=== PATIENT | female | born 1935 | race Caucasian/White ===

== ENCOUNTER 2018-08-01 15:14 | Inpatient (IN) ==
[2018-08-01] MEDS ORDERED: ONDANSETRON 4 MG/2 ML VIAL IV PRN (15:31)
[2018-08-01] MEDS ORDERED: ACETAMINOPHEN 325 MG TABLET PO PRN (15:31)
[2018-08-01] MEDS ORDERED: MAGNESIUM SULF RIDER 4 GM in PREMIX 1 EACH IV PRN (15:31)
[2018-08-01] MEDS ORDERED: ZALEPLON 5 MG CAPSULE PO PRN (15:31)
[2018-08-01] MEDS ORDERED: MAGNESIUM SULF RIDER 2 GM in PREMIX 1 EACH IV PRN (15:31)
[2018-08-01] MEDS ORDERED: DOCUSATE SODIUM 100 MG CAPSULE PO PRN (15:31)
[2018-08-01 19:17] LABS: Basophils # 0.1 10*3/uL (0.0-0.2); Basophils % 0.7 % (0.0-0.8); Eosinophils # 0.3 10*3/uL (0.0-0.87); Eosinophils % 2.2 % (0.00-10.9); Hematocrit 35.3 VOL% (35.7-47.0); Hemoglobin 11.6 GM/DL (12.0-16.0); Immature Granulocytes % 0.5 %; Immature Granulocytes Absolute 0.06 #; Lymphocytes # 3.4 10*3/uL (1.4-4.0); Lymphocytes % 30.1 % (21.3-54.2); Mean Corpuscular HGB Conc 32.9 GM/DL (32-36); Mean Corpuscular Hemoglobin 32 PG (27-34); Mean Corpuscular Volume 98.6 FL (87-102); Mean Platelet Volume 11.2 FL (9.6-12.0); Monocytes # 0.9 10*3/uL (0.11-0.8); Monocytes % 8.2 % (1.7-12.7); Neutrophils # 6.7 10*3/uL (1.4-7.4); Neutrophils % 58.3 % (38.7-73.9); Platelet Count 194 T/CUMM (130-400); Red Blood Count 3.58 MC/CUMM (3.8-5.5); Red Cell Distribution Width 14.1 % (9.3-17.3); White Blood Count 11.4 T/CUMM (4-12)
[2018-08-01 19:40] LABS: Calcium 9.1 MG/DL (8.5-10.1); Osmolality,Calculated 303.8 MOS/KG (273-304); Potassium 3.9 MMOL/L (3.5-5.1)
[2018-08-01 22:43] LABS: Apearance,Urine Slightly Hazy (Clear); Bacteria,Urine Many /HPF (Few); Bilirubin,Urine Negative (Negative); Blood, Urine Negative (Negative); Glucose,Urine (UA) Negative (Negative); Hyaline Casts,Urine 5 /LPF (0-3); Ketones,Urine Negative (Negative); Nitrite,Urine Positive (Negative); Protein,Urine Negative; Squamous Epithelial Cell,Urine Occasional /HPF (0-10); Urine Color Yellow (Yellow); Urine Specific Gravity 1.018 (1.001-1.035); Urine Urobilinogen < 2.0 EU/DL (0.2-1.0); WBC,Urine 11 /HPF (0-6)
[2018-08-02] MEDS ORDERED: ceFAZolin 1,000 MG VIAL IRRIG ONE (06:00)
[2018-08-02] MEDS ORDERED: ceFAZolin 1,000 MG in SYRINGE 1 EACH IV ONE (06:00)
[2018-08-02] MEDS ORDERED: MIDAZOLAM 2 MG/2 ML VIAL ONE (12:24)
[2018-08-02] MEDS ORDERED: LIDOCAINE 1% 20 ML VIAL ONE (12:24)
[2018-08-02] MEDS ORDERED: HEPARIN/NACL 0.9% 2 UNITS/ML 500 ML IV ONE (12:24)
[2018-08-02] MEDS ORDERED: fentaNYL 100 MCG/2 ML VIAL ONE (12:24)
[2018-08-02] MEDS ORDERED: ceFAZolin 1,000 MG VIAL ONE (12:25)
[2018-08-02] MEDS ORDERED: TISSUE ADHESIVE 1 EACH APPLICATOR TOP ONE (12:25)
[2018-08-02] MEDS ORDERED: hydrALAZINE 20 MG/1 ML VIAL ONE (12:48)
[2018-08-02] MEDS ORDERED: GLUCAGON 1 MG VIAL IM PRN ×2 (13:14→14:24)
[2018-08-02] MEDS ORDERED: DEXTROSE 50% 25 GM/50 ML VIAL IV PRN (13:14)
[2018-08-02] MEDS: LOSARTAN 50 MG TABLET PO SCH ×2 (13:49→22:16)
[2018-08-02] MEDS: ALLOPURINOL 100 MG TABLET PO SCH ×2 (13:50→22:16)
[2018-08-02] MEDS: FAMOTIDINE 20 MG TABLET PO SCH ×2 (13:50→22:17)
[2018-08-02] MEDS ORDERED: METOPROLOL TARTRATE 5 MG/5 ML VIAL IV ONE ×2 (14:04→14:13)
[2018-08-02] MEDS ORDERED: DEXTROSE 50% 25 GM/50 ML SYRINGE IV PRN (14:24)
[2018-08-02] MEDS ORDERED: oxyCODONE/ACETAMINOPHEN 5-325 MG TABLET PO PRN (14:24)
[2018-08-02] MEDS ORDERED: cloNIDine 0.1 MG TABLET PO PRN (14:26)
[2018-08-02] MEDS ORDERED: ONDANSETRON 4 MG/2 ML VIAL ONE (14:32)
[2018-08-02] MEDS: hydroCHLOROthiazide 12.5 MG CAPSULE PO SCH (15:03)
[2018-08-02] MEDS: ISOSORBIDE MONONITRATE 30 MG TABLET PO SCH (15:04)
[2018-08-02] MEDS: cefTRIAXone 1,000 MG in SYRINGE 1 EACH IV SCH (15:21)
[2018-08-02] MEDS: METOPROLOL TARTRATE 50 MG TABLET PO SCH ×2 (15:21→22:18)
[2018-08-02] MEDS: INSULIN LISPRO 100 UNIT/ML SUBCUT SCH (17:10)
[2018-08-02] MEDS: INSULIN REGULAR 100 UNIT/ML SUBCUT SCH ×2 (17:10→22:17)
[2018-08-02] MEDS: ATORVASTATIN 20 MG TABLET PO SCH (22:16)
[2018-08-02] MEDS: FERROUS SULFATE ER 140 MG TABLET PO SCH (22:16)
[2018-08-02] MEDS: CLOPIDOGREL 75 MG TABLET PO SCH (22:17)
[2018-08-02] MEDS: INSULIN GLARGINE 100 UNIT/ML SUBCUT SCH (22:17)
[2018-08-02] MEDS: ceFAZolin 1,000 MG in SYRINGE 1 EACH IV SCH (22:20)
[2018-08-03] MEDS: ceFAZolin 1,000 MG in SYRINGE 1 EACH IV SCH (04:35)
[2018-08-03 05:30] LABS: Basophils # 0.1 10*3/uL (0.0-0.2); Basophils % 0.3 % (0.0-0.8); Eosinophils % 0.3 % (0.00-10.9); Hematocrit 32.5 VOL% (35.7-47.0); Hemoglobin 10.3 GM/DL (12.0-16.0); Immature Granulocytes % 0.4 %; Immature Granulocytes Absolute 0.06 #; Lymphocytes # 3.8 10*3/uL (1.4-4.0); Lymphocytes % 25.2 % (21.3-54.2); Mean Corpuscular HGB Conc 31.7 GM/DL (32-36); Mean Corpuscular Hemoglobin 32 PG (27-34); Mean Corpuscular Volume 99.7 FL (87-102); Mean Platelet Volume 11.2 FL (9.6-12.0); Monocytes # 1.3 10*3/uL (0.11-0.8); Monocytes % 8.6 % (1.7-12.7); Neutrophils # 9.8 10*3/uL (1.4-7.4); Neutrophils % 65.2 % (38.7-73.9); Platelet Count 169 T/CUMM (130-400); Red Blood Count 3.26 MC/CUMM (3.8-5.5)
[2018-08-03 05:49] LABS: Calcium 8.9 MG/DL (8.5-10.1); Osmolality,Calculated 297.8 MOS/KG (273-304); Potassium 3.8 MMOL/L (3.5-5.1)
[2018-08-03] MEDS: INSULIN REGULAR 100 UNIT/ML SUBCUT SCH ×4 (07:23→22:17)
[2018-08-03] MEDS: INSULIN LISPRO 100 UNIT/ML SUBCUT SCH ×3 (08:52→16:22)
[2018-08-03] MEDS ORDERED: IBUPROFEN 200 MG TABLET PO PRN (09:11)
[2018-08-03] MEDS: COLCHICINE 0.6 MG CAPSULE PO SCH (10:50)
[2018-08-03] MEDS: ISOSORBIDE MONONITRATE 30 MG TABLET PO SCH (10:50)
[2018-08-03] MEDS: FERROUS SULFATE ER 140 MG TABLET PO SCH ×2 (10:50→21:41)
[2018-08-03] MEDS: FAMOTIDINE 20 MG TABLET PO SCH ×2 (10:50→21:41)
[2018-08-03] MEDS: hydroCHLOROthiazide 12.5 MG CAPSULE PO SCH (10:50)
[2018-08-03] MEDS: METOPROLOL TARTRATE 50 MG TABLET PO SCH ×2 (10:51→21:41)
[2018-08-03] MEDS: ALLOPURINOL 100 MG TABLET PO SCH ×2 (10:51→21:41)
[2018-08-03] MEDS: LOSARTAN 50 MG TABLET PO SCH ×2 (10:51→21:41)
[2018-08-03] MEDS: cefTRIAXone 1,000 MG in SYRINGE 1 EACH IV SCH (16:22)
[2018-08-03] MEDS: ATORVASTATIN 20 MG TABLET PO SCH (21:41)
[2018-08-03] MEDS: CLOPIDOGREL 75 MG TABLET PO SCH (21:41)
[2018-08-03] MEDS: INSULIN GLARGINE 100 UNIT/ML SUBCUT SCH (21:46)
[2018-08-04 04:27] LABS: Basophils % 0.2 % (0.0-0.8); Eosinophils % 0.1 % (0.00-10.9); Hematocrit 26.4 VOL% (35.7-47.0); Hemoglobin 8.3 GM/DL (12.0-16.0); Immature Granulocytes % 0.5 %; Immature Granulocytes Absolute 0.06 #; Lymphocytes # 2.5 10*3/uL (1.4-4.0); Lymphocytes % 19.8 % (21.3-54.2); Mean Corpuscular HGB Conc 31.4 GM/DL (32-36); Mean Corpuscular Hemoglobin 32 PG (27-34); Mean Corpuscular Volume 100.4 FL (87-102); Mean Platelet Volume 11.8 FL (9.6-12.0); Monocytes # 1.4 10*3/uL (0.11-0.8); Monocytes % 11.3 % (1.7-12.7); Neutrophils # 8.4 10*3/uL (1.4-7.4); Neutrophils % 68.1 % (38.7-73.9); Platelet Count 145 T/CUMM (130-400); Red Blood Count 2.63 MC/CUMM (3.8-5.5); Red Cell Distribution Width 14.1 % (9.3-17.3); White Blood Count 12.4 T/CUMM (4-12)
[2018-08-04 05:09] LABS: Calcium 8.5 MG/DL (8.5-10.1); Potassium 3.5 MMOL/L (3.5-5.1)
[2018-08-04] MEDS: LOSARTAN 50 MG TABLET PO SCH ×2 (09:13→22:24)
[2018-08-04] MEDS: FERROUS SULFATE ER 140 MG TABLET PO SCH ×2 (09:13→22:24)
[2018-08-04] MEDS: hydroCHLOROthiazide 12.5 MG CAPSULE PO SCH (09:13)
[2018-08-04] MEDS: INSULIN LISPRO 100 UNIT/ML SUBCUT SCH ×3 (09:14→16:00)
[2018-08-04] MEDS: INSULIN REGULAR 100 UNIT/ML SUBCUT SCH ×4 (09:14→22:25)
[2018-08-04] MEDS: ISOSORBIDE MONONITRATE 30 MG TABLET PO SCH (09:14)
[2018-08-04] MEDS: FAMOTIDINE 20 MG TABLET PO SCH ×2 (09:14→22:24)
[2018-08-04] MEDS: ALLOPURINOL 100 MG TABLET PO SCH ×2 (09:14→22:24)
[2018-08-04] MEDS: METOPROLOL TARTRATE 50 MG TABLET PO SCH ×2 (09:14→22:24)
[2018-08-04] MEDS: COLCHICINE 0.6 MG CAPSULE PO SCH (10:43)
[2018-08-04] MEDS: cefTRIAXone 1,000 MG in SYRINGE 1 EACH IV SCH (16:00)
[2018-08-04] MEDS: ATORVASTATIN 20 MG TABLET PO SCH (22:24)
[2018-08-04] MEDS: CLOPIDOGREL 75 MG TABLET PO SCH (22:24)
[2018-08-04] MEDS: INSULIN GLARGINE 100 UNIT/ML SUBCUT SCH (22:25)
[2018-08-05 04:26] LABS: Basophils # 0.1 10*3/uL (0.0-0.2); Basophils % 0.5 % (0.0-0.8); Eosinophils # 0.4 10*3/uL (0.0-0.87); Eosinophils % 3.6 % (0.00-10.9); Hematocrit 26.8 VOL% (35.7-47.0); Hemoglobin 8.6 GM/DL (12.0-16.0); Immature Granulocytes % 0.5 %; Immature Granulocytes Absolute 0.05 #; Lymphocytes # 3.2 10*3/uL (1.4-4.0); Lymphocytes % 30.7 % (21.3-54.2); Mean Corpuscular HGB Conc 32.1 GM/DL (32-36); Mean Corpuscular Hemoglobin 32 PG (27-34); Mean Corpuscular Volume 98.9 FL (87-102); Mean Platelet Volume 11.2 FL (9.6-12.0); Monocytes % 9.4 % (1.7-12.7); Neutrophils # 5.8 10*3/uL (1.4-7.4); Neutrophils % 55.3 % (38.7-73.9); Platelet Count 152 T/CUMM (130-400); Red Blood Count 2.71 MC/CUMM (3.8-5.5); Red Cell Distribution Width 13.8 % (9.3-17.3); White Blood Count 10.5 T/CUMM (4-12)
[2018-08-05 04:44] LABS: Calcium 8.4 MG/DL (8.5-10.1); Osmolality,Calculated 300.1 MOS/KG (273-304); Potassium 3.8 MMOL/L (3.5-5.1)
[2018-08-05] MEDS: LOSARTAN 50 MG TABLET PO SCH (09:52)
[2018-08-05] MEDS: COLCHICINE 0.6 MG CAPSULE PO SCH (09:52)
[2018-08-05] MEDS: FAMOTIDINE 20 MG TABLET PO SCH (09:52)
[2018-08-05] MEDS: METOPROLOL TARTRATE 50 MG TABLET PO SCH (09:52)
[2018-08-05] MEDS: FERROUS SULFATE ER 140 MG TABLET PO SCH (09:52)
[2018-08-05] MEDS: ISOSORBIDE MONONITRATE 30 MG TABLET PO SCH (09:52)
[2018-08-05] MEDS: ALLOPURINOL 100 MG TABLET PO SCH (09:52)
[2018-08-05] MEDS: hydroCHLOROthiazide 12.5 MG CAPSULE PO SCH (09:52)
[2018-08-05] MEDS: INSULIN LISPRO 100 UNIT/ML SUBCUT SCH ×3 (09:55→16:15)
[2018-08-05] MEDS: INSULIN REGULAR 100 UNIT/ML SUBCUT SCH ×3 (09:58→16:30)
[2018-08-05 12:11] VITALS: BP 157/70
[2018-08-06] MEDS ORDERED: OXYTROL PATCH TRANSDERM SCH (08:00)
== END 2018-08-05 16:27 | DRG 243 ==
LOC: N.TELES 18:12 → INTOOBSV 18:12
PROVIDERS: ADMIT Internal Medicine Clinical Cardiac Electrophysiology; ATTEND Internal Medicine Clinical Cardiac Electrophysiology

== ENCOUNTER 2020-11-03 14:42 | Inpatient (IN) ==
[2020-11-03 15:26] LABS: Basophils # 0.1 10*3/uL (0.0-0.2); Basophils % 0.5 % (0.0-0.8); Eosinophils # 0.1 10*3/uL (0.0-0.87); Eosinophils % 0.3 % (0.00-10.9); Hemoglobin 12.1 GM/DL (12.0-16.0); Immature Granulocytes % 0.6 %; Immature Granulocytes Absolute 0.11 #; Lymphocytes # 2.3 10*3/uL (1.4-4.0); Lymphocytes % 12.5 % (21.3-54.2); Mean Corpuscular HGB Conc 33.6 GM/DL (32-36); Mean Corpuscular Volume 95.7 FL (87-102); Mean Platelet Volume 10.5 FL (9.6-12.0); Monocytes % 7.8 % (1.7-12.7); Neutrophils % 78.3 % (38.7-73.9); Platelet Count 247 T/CUMM (130-400); Red Blood Count 3.76 MC/CUMM (3.8-5.5); Red Cell Distribution Width 14.2 % (9.3-17.3); White Blood Count 18.7 T/CUMM (4-12)
[2020-11-03 15:43] LABS: Albumin 3.6 G/DL (3.4-5.0); Bilirubin,Total 0.4 MG/DL (0.2-1.0); Calcium 10.8 MG/DL (8.5-10.1); Potassium 4.2 MMOL/L (3.5-5.1); Total Protein 7.5 G/DL (6.4-8.2)
[2020-11-03] MEDS ORDERED: SODIUM CHLORIDE 0.9% 500 ML IV STA (16:07)
[2020-11-03 17:25] LABS: Bacteria,Urine Many /HPF (Few); Bilirubin,Urine Negative (Negative); Blood, Urine Negative (Negative); Glucose,Urine (UA) Negative (Negative); Hyaline Casts,Urine 9 /LPF (0-3); Ketones,Urine Negative (Negative); Mucus,Urine Occasional /LPF (Occasional); Nitrite,Urine Negative (Negative); Protein,Urine Negative; RBC,Urine 1 /HPF (0-4); Squamous Epithelial Cell,Urine Occasional /HPF (0-10); Urine Appearance CLEAR (Clear); Urine Color Straw (Yellow); Urine Specific Gravity 1.008 (1.001-1.035); Urine Urobilinogen < 2.0 EU/DL (0.2-1.0)
[2020-11-03] MEDS ORDERED: GLUCAGON 1 MG VIAL IM PRN ×3 (17:58→18:07)
[2020-11-03] MEDS ORDERED: DEXTROSE 50% 25 GM/50 ML VIAL IV PRN ×3 (17:58→18:07)
[2020-11-03] MEDS: ENOXAPARIN 40 MG/0.4 ML SYRINGE SUBCUT SCH (18:40)
[2020-11-03] MEDS: INSULIN REGULAR 100 UNIT/ML SUBCUT SCH (20:45)
[2020-11-03] MEDS: ATORVASTATIN 20 MG TABLET PO SCH (20:48)
[2020-11-03] MEDS: allopurinoL 100 MG TABLET PO SCH (20:48)
[2020-11-03] MEDS: CLOPIDOGREL 75 MG TABLET PO SCH (20:48)
[2020-11-04] MEDS: ACETAMINOPHEN 325 MG TABLET PO PRN ×2 (01:21→12:40)
[2020-11-04 05:44] LABS: Basophils # 0.1 10*3/uL (0.0-0.2); Basophils % 0.7 % (0.0-0.8); Eosinophils # 0.2 10*3/uL (0.0-0.87); Eosinophils % 1.2 % (0.00-10.9); Hemoglobin 12.1 GM/DL (12.0-16.0); Immature Granulocytes % 0.5 %; Immature Granulocytes Absolute 0.08 #; Lymphocytes # 4.3 10*3/uL (1.4-4.0); Lymphocytes % 25.4 % (21.3-54.2); Mean Corpuscular HGB Conc 34.6 GM/DL (32-36); Mean Corpuscular Volume 94.9 FL (87-102); Mean Platelet Volume 11.3 FL (9.6-12.0); Monocytes % 9.4 % (1.7-12.7); Neutrophils % 62.8 % (38.7-73.9); Platelet Count 236 T/CUMM (130-400); Red Blood Count 3.69 MC/CUMM (3.8-5.5); Red Cell Distribution Width 14.1 % (9.3-17.3); White Blood Count 16.9 T/CUMM (4-12)
[2020-11-04 06:19] LABS: Calcium 10.1 MG/DL (8.5-10.1); Osmolality,Calculated 294.3 MOS/KG (273-304); Potassium 3.6 MMOL/L (3.5-5.1); Risk Ratio 4.76; Thyroid Stimulating Hormone 1.21 uIU/ml (0.358-3.74); VLDL CHOLESTEROL 43.4 MG/DL
[2020-11-04] MEDS: INSULIN REGULAR 100 UNIT/ML SUBCUT SCH ×4 (10:03→20:42)
[2020-11-04] MEDS: allopurinoL 100 MG TABLET PO SCH ×2 (10:04→20:39)
[2020-11-04] MEDS: PANTOPRAZOLE 40 MG TABLET PO SCH (10:04)
[2020-11-04] MEDS: ENOXAPARIN 40 MG/0.4 ML SYRINGE SUBCUT SCH (19:13)
[2020-11-04] MEDS: CLOPIDOGREL 75 MG TABLET PO SCH (20:39)
[2020-11-04] MEDS: ATORVASTATIN 20 MG TABLET PO SCH (20:39)
[2020-11-05] MEDS: INSULIN REGULAR 100 UNIT/ML SUBCUT SCH ×4 (09:09→21:36)
[2020-11-05] MEDS: PANTOPRAZOLE 40 MG TABLET PO SCH (09:11)
[2020-11-05] MEDS: allopurinoL 100 MG TABLET PO SCH ×2 (09:11→21:35)
[2020-11-05] MEDS: FLUCONAZOLE INJ 200 MG/100 ML PREMIX IV SCH (10:46)
[2020-11-05] MEDS: CLOTRIMAZOLE 1% CREAM 15 GM TUBE TOP SCH ×2 (11:24→21:36)
[2020-11-05] MEDS: ENOXAPARIN 40 MG/0.4 ML SYRINGE SUBCUT SCH (17:27)
[2020-11-05] MEDS: ATORVASTATIN 20 MG TABLET PO SCH (21:35)
[2020-11-05] MEDS: CLOPIDOGREL 75 MG TABLET PO SCH (21:35)
[2020-11-06 04:43] LABS: Basophils # 0.1 10*3/uL (0.0-0.2); Basophils % 0.6 % (0.0-0.8); Eosinophils # 0.2 10*3/uL (0.0-0.87); Eosinophils % 1.1 % (0.00-10.9); Hematocrit 38.9 VOL% (35.7-47.0); Immature Granulocytes % 0.5 %; Immature Granulocytes Absolute 0.08 #; Lymphocytes # 3.6 10*3/uL (1.4-4.0); Lymphocytes % 22.8 % (21.3-54.2); Mean Corpuscular HGB Conc 33.4 GM/DL (32-36); Mean Corpuscular Volume 95.1 FL (87-102); Mean Platelet Volume 11.7 FL (9.6-12.0); Monocytes % 8.6 % (1.7-12.7); Neutrophils % 66.4 % (38.7-73.9); Platelet Count 229 T/CUMM (130-400); Red Blood Count 4.09 MC/CUMM (3.8-5.5); Red Cell Distribution Width 13.8 % (9.3-17.3)
[2020-11-06] MEDS: INSULIN REGULAR 100 UNIT/ML SUBCUT SCH ×4 (09:28→22:05)
[2020-11-06] MEDS: allopurinoL 100 MG TABLET PO SCH ×2 (09:28→22:05)
[2020-11-06] MEDS: CLOTRIMAZOLE 1% CREAM 15 GM TUBE TOP SCH ×2 (09:28→22:05)
[2020-11-06] MEDS: PANTOPRAZOLE 40 MG TABLET PO SCH (09:28)
[2020-11-06] MEDS: FLUCONAZOLE INJ 200 MG/100 ML PREMIX IV SCH (09:31)
[2020-11-06] MEDS: ACETAMINOPHEN 325 MG TABLET PO PRN (15:28)
[2020-11-06] MEDS: ENOXAPARIN 40 MG/0.4 ML SYRINGE SUBCUT SCH (18:15)
[2020-11-06] MEDS: CLOPIDOGREL 75 MG TABLET PO SCH (22:05)
[2020-11-06] MEDS: ATORVASTATIN 20 MG TABLET PO SCH (22:05)
[2020-11-07] MEDS: ACETAMINOPHEN 325 MG TABLET PO PRN (00:27)
[2020-11-07] MEDS: allopurinoL 100 MG TABLET PO SCH ×2 (09:09→20:38)
[2020-11-07] MEDS: PANTOPRAZOLE 40 MG TABLET PO SCH (09:09)
[2020-11-07] MEDS: CLOTRIMAZOLE 1% CREAM 15 GM TUBE TOP SCH ×2 (09:09→20:38)
[2020-11-07] MEDS: INSULIN REGULAR 100 UNIT/ML SUBCUT SCH ×4 (11:56→20:38)
[2020-11-07] MEDS: FLUCONAZOLE INJ 200 MG/100 ML PREMIX IV SCH (12:00)
[2020-11-07] MEDS: ENOXAPARIN 40 MG/0.4 ML SYRINGE SUBCUT SCH (17:36)
[2020-11-07] MEDS: CLOPIDOGREL 75 MG TABLET PO SCH (20:37)
[2020-11-07] MEDS: ATORVASTATIN 20 MG TABLET PO SCH (20:38)
[2020-11-08] MEDS: INSULIN REGULAR 100 UNIT/ML SUBCUT SCH ×4 (09:54→21:04)
[2020-11-08] MEDS: PANTOPRAZOLE 40 MG TABLET PO SCH (09:55)
[2020-11-08] MEDS: FLUCONAZOLE INJ 200 MG/100 ML PREMIX IV SCH (09:55)
[2020-11-08] MEDS: CLOTRIMAZOLE 1% CREAM 15 GM TUBE TOP SCH ×2 (09:55→21:04)
[2020-11-08] MEDS: allopurinoL 100 MG TABLET PO SCH ×2 (09:55→21:03)
[2020-11-08] MEDS ORDERED: cefTRIAXone 1,000 MG in SODIUM CHLORIDE 0.9% 100 ML IV SCH (13:00)
[2020-11-08] MEDS ORDERED: IBUPROFEN 200 MG TABLET PO PRN (17:00)
[2020-11-08] MEDS ORDERED: POTASSIUM CHLORIDE 20 MEQ TABLET PO PRN (17:00)
[2020-11-08] MEDS ORDERED: FUROSEMIDE 40 MG TABLET PO PRN (17:00)
[2020-11-08] MEDS ORDERED: ERGOCALCIFEROL 50,000 UNIT CAPSULE PO SCH (17:00)
[2020-11-08] MEDS: ENOXAPARIN 30 MG/0.3 ML SYRINGE SUBCUT SCH (17:22)
[2020-11-08] MEDS: ASPIRIN EC 81 MG TABLET PO SCH (21:03)
[2020-11-08] MEDS: ATORVASTATIN 20 MG TABLET PO SCH (21:03)
[2020-11-08] MEDS: FERROUS SULFATE 325 MG TABLET PO SCH (21:03)
[2020-11-08] MEDS: CLOPIDOGREL 75 MG TABLET PO SCH (21:03)
[2020-11-08] MEDS: INSULIN GLARGINE 100 UNIT/ML SUBCUT SCH (21:04)
[2020-11-09 04:47] LABS: Basophils # 0.1 10*3/uL (0.0-0.2); Basophils % 0.7 % (0.0-0.8); Eosinophils # 1.1 10*3/uL (0.0-0.87); Eosinophils % 8.1 % (0.00-10.9); Hematocrit 34.2 VOL% (35.7-47.0); Hemoglobin 11.5 GM/DL (12.0-16.0); Immature Granulocytes % 0.4 %; Immature Granulocytes Absolute 0.05 #; Lymphocytes # 3.7 10*3/uL (1.4-4.0); Lymphocytes % 28.2 % (21.3-54.2); Mean Corpuscular HGB Conc 33.6 GM/DL (32-36); Mean Corpuscular Volume 94.5 FL (87-102); Mean Platelet Volume 10.8 FL (9.6-12.0); Monocytes % 8.7 % (1.7-12.7); Neutrophils % 53.9 % (38.7-73.9); Platelet Count 272 T/CUMM (130-400); Red Blood Count 3.62 MC/CUMM (3.8-5.5); Red Cell Distribution Width 13.5 % (9.3-17.3)
[2020-11-09 05:02] LABS: Calcium 9.5 MG/DL (8.5-10.1); Osmolality,Calculated 284.7 MOS/KG (273-304); Potassium 3.7 MMOL/L (3.5-5.1)
[2020-11-09] MEDS ORDERED: OXYBUTYNIN TRANSDERM SCH (09:00)
[2020-11-09] MEDS: INSULIN REGULAR 100 UNIT/ML SUBCUT SCH ×4 (09:11→21:22)
[2020-11-09] MEDS: PANTOPRAZOLE 40 MG TABLET PO SCH (09:12)
[2020-11-09] MEDS: allopurinoL 100 MG TABLET PO SCH ×2 (09:12→21:22)
[2020-11-09] MEDS: CHOLECALCIFEROL 1,000 UNIT TABLET PO SCH (09:12)
[2020-11-09] MEDS: ISOSORBIDE MONONITRATE 30 MG TABLET PO SCH (09:12)
[2020-11-09] MEDS: ASCORBIC ACID 500 MG TABLET PO SCH (09:12)
[2020-11-09] MEDS: METOPROLOL SUCCINATE XL 25 MG TABLET PO SCH (09:12)
[2020-11-09] MEDS: FERROUS SULFATE 325 MG TABLET PO SCH ×2 (09:12→21:22)
[2020-11-09] MEDS: hydroCHLOROthiazide 12.5 MG CAPSULE PO SCH (09:12)
[2020-11-09] MEDS: CLOTRIMAZOLE 1% CREAM 15 GM TUBE TOP SCH ×2 (09:13→21:24)
[2020-11-09] MEDS: CYANOCOBALAMIN 500 MCG TABLET PO SCH (09:13)
[2020-11-09] MEDS ORDERED: TUBERCULIN SKIN TEST 0.1 ML SYRINGE INTRADERM ONE ×2 (10:55→11:29)
[2020-11-09] MEDS: FLUCONAZOLE INJ 200 MG/100 ML PREMIX IV SCH (12:19)
[2020-11-09] MEDS ORDERED: CEFUROXIME 250 MG TABLET PO SCH (12:30)
[2020-11-09] MEDS: ENOXAPARIN 30 MG/0.3 ML SYRINGE SUBCUT SCH (17:55)
[2020-11-09] MEDS: ASPIRIN EC 81 MG TABLET PO SCH (21:22)
[2020-11-09] MEDS: ATORVASTATIN 20 MG TABLET PO SCH (21:22)
[2020-11-09] MEDS: CEFUROXIME 250 MG TABLET PO SCH (21:22)
[2020-11-09] MEDS: CLOPIDOGREL 75 MG TABLET PO SCH (21:22)
[2020-11-09] MEDS: INSULIN GLARGINE 100 UNIT/ML SUBCUT SCH (21:23)
[2020-11-10 04:52] LABS: Basophils # 0.1 10*3/uL (0.0-0.2); Basophils % 0.7 % (0.0-0.8); Eosinophils % 7.6 % (0.00-10.9); Hematocrit 32.9 VOL% (35.7-47.0); Hemoglobin 10.8 GM/DL (12.0-16.0); Immature Granulocytes % 0.7 %; Immature Granulocytes Absolute 0.09 #; Lymphocytes # 3.7 10*3/uL (1.4-4.0); Lymphocytes % 28.1 % (21.3-54.2); Mean Corpuscular HGB Conc 32.8 GM/DL (32-36); Mean Corpuscular Volume 96.2 FL (87-102); Mean Platelet Volume 10.3 FL (9.6-12.0); Monocytes % 8.6 % (1.7-12.7); Neutrophils % 54.3 % (38.7-73.9); Platelet Count 299 T/CUMM (130-400); Red Blood Count 3.42 MC/CUMM (3.8-5.5); Red Cell Distribution Width 13.5 % (9.3-17.3); White Blood Count 13.1 T/CUMM (4-12)
[2020-11-10 05:13] LABS: Calcium 9.6 MG/DL (8.5-10.1); Osmolality,Calculated 282.4 MOS/KG (273-304); Potassium 3.6 MMOL/L (3.5-5.1)
[2020-11-10] MEDS: INSULIN REGULAR 100 UNIT/ML SUBCUT SCH ×4 (08:33→21:11)
[2020-11-10] MEDS: CEFUROXIME 250 MG TABLET PO SCH ×2 (08:35→21:12)
[2020-11-10] MEDS: ASCORBIC ACID 500 MG TABLET PO SCH (08:36)
[2020-11-10] MEDS: METOPROLOL SUCCINATE XL 25 MG TABLET PO SCH (08:36)
[2020-11-10] MEDS: PANTOPRAZOLE 40 MG TABLET PO SCH (08:36)
[2020-11-10] MEDS: CHOLECALCIFEROL 1,000 UNIT TABLET PO SCH (08:36)
[2020-11-10] MEDS: hydroCHLOROthiazide 12.5 MG CAPSULE PO SCH (08:36)
[2020-11-10] MEDS: allopurinoL 100 MG TABLET PO SCH ×2 (08:36→21:13)
[2020-11-10] MEDS: ISOSORBIDE MONONITRATE 30 MG TABLET PO SCH (08:36)
[2020-11-10] MEDS: CLOTRIMAZOLE 1% CREAM 15 GM TUBE TOP SCH ×2 (08:37→21:12)
[2020-11-10] MEDS: CYANOCOBALAMIN 500 MCG TABLET PO SCH (08:37)
[2020-11-10] MEDS: FERROUS SULFATE 325 MG TABLET PO SCH ×2 (08:37→21:12)
[2020-11-10] MEDS: FLUCONAZOLE INJ 200 MG/100 ML PREMIX IV SCH (10:49)
[2020-11-10] MEDS ORDERED: amLODIPine 10 MG TABLET PO ONE (17:03)
[2020-11-10] MEDS ORDERED: hydrALAZINE 20 MG/1 ML VIAL IV PRN (17:04)
[2020-11-10] MEDS: ENOXAPARIN 30 MG/0.3 ML SYRINGE SUBCUT SCH (17:27)
[2020-11-10] MEDS: ASPIRIN EC 81 MG TABLET PO SCH (21:11)
[2020-11-10] MEDS: ATORVASTATIN 20 MG TABLET PO SCH (21:12)
[2020-11-10] MEDS: CLOPIDOGREL 75 MG TABLET PO SCH (21:12)
[2020-11-10] MEDS: INSULIN GLARGINE 100 UNIT/ML SUBCUT SCH (21:12)
[2020-11-10] MEDS ORDERED: ZALEPLON 5 MG CAPSULE PO PRN (23:09)
[2020-11-11 05:18] LABS: Basophils # 0.1 10*3/uL (0.0-0.2); Basophils % 0.7 % (0.0-0.8); Eosinophils # 1.1 10*3/uL (0.0-0.87); Eosinophils % 8.4 % (0.00-10.9); Hematocrit 33.7 VOL% (35.7-47.0); Hemoglobin 11.4 GM/DL (12.0-16.0); Immature Granulocytes % 0.6 %; Immature Granulocytes Absolute 0.08 #; Lymphocytes # 3.7 10*3/uL (1.4-4.0); Lymphocytes % 29.5 % (21.3-54.2); Mean Corpuscular HGB Conc 33.8 GM/DL (32-36); Mean Corpuscular Volume 94.1 FL (87-102); Monocytes % 8.1 % (1.7-12.7); Neutrophils % 52.7 % (38.7-73.9); Platelet Count 297 T/CUMM (130-400); Red Blood Count 3.58 MC/CUMM (3.8-5.5); Red Cell Distribution Width 13.8 % (9.3-17.3); White Blood Count 12.7 T/CUMM (4-12)
[2020-11-11 05:32] LABS: Calcium 9.8 MG/DL (8.5-10.1); Osmolality,Calculated 282.4 MOS/KG (273-304); Potassium 3.5 MMOL/L (3.5-5.1)
[2020-11-11] MEDS: CHOLECALCIFEROL 1,000 UNIT TABLET PO SCH (08:07)
[2020-11-11] MEDS: allopurinoL 100 MG TABLET PO SCH (08:07)
[2020-11-11] MEDS: METOPROLOL SUCCINATE XL 25 MG TABLET PO SCH (08:07)
[2020-11-11] MEDS: FERROUS SULFATE 325 MG TABLET PO SCH (08:07)
[2020-11-11] MEDS: ASCORBIC ACID 500 MG TABLET PO SCH (08:07)
[2020-11-11] MEDS: ISOSORBIDE MONONITRATE 30 MG TABLET PO SCH (08:07)
[2020-11-11] MEDS: hydroCHLOROthiazide 12.5 MG CAPSULE PO SCH (08:07)
[2020-11-11] MEDS: PANTOPRAZOLE 40 MG TABLET PO SCH (08:07)
[2020-11-11] MEDS: CYANOCOBALAMIN 500 MCG TABLET PO SCH (08:08)
[2020-11-11] MEDS: INSULIN REGULAR 100 UNIT/ML SUBCUT SCH (08:08)
[2020-11-11] MEDS: CLOTRIMAZOLE 1% CREAM 15 GM TUBE TOP SCH (08:08)
[2020-11-11] MEDS: CEFUROXIME 250 MG TABLET PO SCH (08:12)
[2020-11-11 08:29] VITALS: BP 146/59
[2020-11-11] MEDS ORDERED: amLODIPine 10 MG TABLET PO SCH (09:00)
== END 2020-11-11 10:30 | DRG 57 ==
LOC: EDBD → SUATTDRO → EDUNIT# → N.ED 14:42 → N.EDINP 14:42 → SUATTDRO 17:58 → N.EDINP 19:50 → N.4E 20:03 → SUATTDRO 11-05 14:40
PROVIDERS: ADMIT Internal Medicine; ATTEND Internal Medicine

== ENCOUNTER 2020-11-24 09:42 | Inpatient (IN) ==
[2020-11-24] MEDS ORDERED: SODIUM CHLORIDE 0.9% 1,000 ML IV STA (10:27)
[2020-11-24 11:01] LABS: Bacteria,Urine Moderate /HPF (Few); Bilirubin,Urine Negative (Negative); Blood, Urine Large mg/dL (Negative); Glucose,Urine (UA) Negative (Negative); Ketones,Urine Negative (Negative); Mucus,Urine Few /LPF (Occasional); Nitrite,Urine Negative (Negative); Protein,Urine 30 MG/DL; RBC,Urine 7 /HPF (0-4); Squamous Epithelial Cell,Urine Occasional /HPF (0-10); Urine Appearance CLOUDY (Clear); Urine Specific Gravity 1.017 (1.001-1.035); Urine Urobilinogen < 2.0 EU/DL (0.2-1.0)
[2020-11-24 11:03] LABS: Urine Color Dark yellow (Yellow)
[2020-11-24 12:32] LABS: Albumin 3.3 G/DL (3.4-5.0); Bilirubin,Total 0.4 MG/DL (0.2-1.0); Calcium 11.4 MG/DL (8.5-10.1); Potassium 4.1 MMOL/L (3.5-5.1); Total Protein 7.6 G/DL (6.4-8.2)
[2020-11-24] MEDS ORDERED: cefTRIAXone 1,000 MG in SODIUM CHLORIDE 0.9% 100 ML IV STA (12:32)
[2020-11-24] MEDS ORDERED: ACETAMINOPHEN 325 MG TABLET PO PRN (13:40)
[2020-11-24] MEDS ORDERED: DEXTROSE 50% 25 GM/50 ML VIAL IV PRN ×2 (13:40)
[2020-11-24] MEDS ORDERED: GLUCAGON 1 MG VIAL IM PRN ×2 (13:40)
[2020-11-24] MEDS ORDERED: ONDANSETRON 4 MG/2 ML VIAL IV PRN (13:40)
[2020-11-24] MEDS ORDERED: SODIUM PHOSPHATE ENEMA 133 ML BOTTLE RECTAL STA (13:45)
[2020-11-24] MEDS ORDERED: hydrALAZINE 20 MG/1 ML VIAL IV PRN (14:22)
[2020-11-24 15:10] LABS: Basophils # 0.1 10*3/uL (0.0-0.2); Basophils % 0.2 % (0.0-0.8); Hematocrit 49.8 VOL% (35.7-47.0); Hemoglobin 15.3 GM/DL (12.0-16.0); Immature Granulocytes % 0.7 %; Immature Granulocytes Absolute 0.17 #; Lymphocytes # 3.6 10*3/uL (1.4-4.0); Lymphocytes % 14.8 % (21.3-54.2); Mean Corpuscular HGB Conc 30.7 GM/DL (32-36); Mean Corpuscular Volume 100.2 FL (87-102); Mean Platelet Volume 11.6 FL (9.6-12.0); Monocytes % 6.3 % (1.7-12.7); Platelet Count 273 T/CUMM (130-400); Red Blood Count 4.97 MC/CUMM (3.8-5.5); Red Cell Distribution Width 14.6 % (9.3-17.3); White Blood Count 24.1 T/CUMM (4-12)
[2020-11-24 16:10] LABS: Lymphocytes 18 % (20-55); Segmented Neutrophils 78 % (50-85); Total Cells Counted 100
[2020-11-24 16:11] LABS: Anisocytosis 1+; Hypochromasia Slight; Macrocytosis 1+; Microcytosis Slight; Platelet Estimate Normal
[2020-11-24] MEDS: INSULIN LISPRO 100 UNIT/ML SUBCUT SCH ×2 (16:30→22:25)
[2020-11-24] MEDS: SODIUM CHLORIDE 0.45% 1,000 ML IV SCH (16:54)
[2020-11-24] MEDS: HEPARIN 5,000 UNIT/1 ML VIAL SUBCUT SCH (21:04)
[2020-11-24] MEDS: ASPIRIN EC 81 MG TABLET PO SCH (21:52)
[2020-11-24] MEDS: DOCUSATE SODIUM 100 MG CAPSULE PO SCH (21:52)
[2020-11-24] MEDS: ATORVASTATIN 20 MG TABLET PO SCH (21:52)
[2020-11-24] MEDS: allopurinoL 100 MG TABLET PO SCH (21:52)
[2020-11-25] MEDS: allopurinoL 100 MG TABLET PO SCH ×3 (01:35→22:12)
[2020-11-25] MEDS: ATORVASTATIN 20 MG TABLET PO SCH ×2 (01:35→22:12)
[2020-11-25] MEDS: ASPIRIN EC 81 MG TABLET PO SCH ×2 (01:36→22:11)
[2020-11-25] MEDS: DOCUSATE SODIUM 100 MG CAPSULE PO SCH ×3 (01:36→22:11)
[2020-11-25] MEDS: HEPARIN 5,000 UNIT/1 ML VIAL SUBCUT SCH ×2 (02:32→13:02)
[2020-11-25] MEDS: SODIUM CHLORIDE 0.45% 1,000 ML IV SCH (05:03)
[2020-11-25 07:17] LABS: Basophils # 0.1 10*3/uL (0.0-0.2); Basophils % 0.2 % (0.0-0.8); Eosinophils # 0.1 10*3/uL (0.0-0.87); Eosinophils % 0.3 % (0.00-10.9); Hematocrit 48.2 VOL% (35.7-47.0); Hemoglobin 15.6 GM/DL (12.0-16.0); Immature Granulocytes % 0.9 %; Lymphocytes # 3.4 10*3/uL (1.4-4.0); Lymphocytes % 14.7 % (21.3-54.2); Mean Corpuscular HGB Conc 32.4 GM/DL (32-36); Mean Corpuscular Volume 96.6 FL (87-102); Monocytes % 6.1 % (1.7-12.7); NRBC # 0.07 10*3/uL; Neutrophils % 77.8 % (38.7-73.9); Platelet Count 224 T/CUMM (130-400); Red Blood Count 4.99 MC/CUMM (3.8-5.5); Red Cell Distribution Width 14.7 % (9.3-17.3); White Blood Count 23.2 T/CUMM (4-12)
[2020-11-25 07:28] LABS: Lymphocytes 12 % (20-55); Platelet Estimate Adequate; Segmented Neutrophils 82 % (50-85); Total Cells Counted 100
[2020-11-25 08:08] LABS: Albumin 2.9 G/DL (3.4-5.0); Bilirubin,Total 0.5 MG/DL (0.2-1.0); Calcium 10.4 MG/DL (8.5-10.1); Potassium 3.6 MMOL/L (3.5-5.1); Risk Ratio 7.95; Total Protein 6.6 G/DL (6.4-8.2); VLDL CHOLESTEROL 45.8 MG/DL
[2020-11-25] MEDS: INSULIN LISPRO 100 UNIT/ML SUBCUT SCH ×4 (08:10→22:12)
[2020-11-25] MEDS ORDERED: CLOPIDOGREL 75 MG TABLET PO SCH (09:00)
[2020-11-25] MEDS: PANTOPRAZOLE 40 MG TABLET PO SCH (09:25)
[2020-11-25] MEDS: METOPROLOL SUCCINATE XL 25 MG TABLET PO SCH (09:25)
[2020-11-25] MEDS: cefTRIAXone 1,000 MG in SODIUM CHLORIDE 0.9% 100 ML IV SCH (09:26)
[2020-11-25] MEDS: NYSTATIN 500,000 UNIT/5 ML UDCUP SWISH/SWAL SCH ×3 (12:58→22:12)
[2020-11-25 14:59] LABS: INR 1.4; PT Patient Result 15.1 SECS (10.5-12.0)
[2020-11-25] MEDS: SODIUM CHLORIDE 23.4% CONC INJ 38.5 MEQ in STERILE WATER INJ 1,000 ML IV SCH (15:34)
[2020-11-26] MEDS: SODIUM CHLORIDE 23.4% CONC INJ 38.5 MEQ in STERILE WATER INJ 1,000 ML IV SCH ×3 (03:09→17:10)
[2020-11-26 05:18] LABS: Basophils # 0.1 10*3/uL (0.0-0.2); Basophils % 0.3 % (0.0-0.8); Eosinophils # 0.4 10*3/uL (0.0-0.87); Eosinophils % 2.2 % (0.00-10.9); Hemoglobin 12.7 GM/DL (12.0-16.0); Immature Granulocytes % 0.6 %; Immature Granulocytes Absolute 0.11 #; Lymphocytes # 3.7 10*3/uL (1.4-4.0); Lymphocytes % 19.5 % (21.3-54.2); Mean Corpuscular HGB Conc 31.8 GM/DL (32-36); Mean Corpuscular Volume 98.8 FL (87-102); Mean Platelet Volume 11.9 FL (9.6-12.0); Monocytes % 5.3 % (1.7-12.7); Neutrophils % 72.1 % (38.7-73.9); Platelet Count 218 T/CUMM (130-400); Red Blood Count 4.05 MC/CUMM (3.8-5.5); Red Cell Distribution Width 14.6 % (9.3-17.3); White Blood Count 19.2 T/CUMM (4-12)
[2020-11-26 05:49] LABS: Albumin 2.6 G/DL (3.4-5.0); Bilirubin,Total 0.5 MG/DL (0.2-1.0); Calcium 9.5 MG/DL (8.5-10.1); Potassium 3.2 MMOL/L (3.5-5.1); Total Protein 5.7 G/DL (6.4-8.2)
[2020-11-26] MEDS: cefTRIAXone 1,000 MG in SODIUM CHLORIDE 0.9% 100 ML IV SCH (09:03)
[2020-11-26] MEDS: INSULIN LISPRO 100 UNIT/ML SUBCUT SCH ×4 (09:03→22:40)
[2020-11-26] MEDS: NYSTATIN 500,000 UNIT/5 ML UDCUP SWISH/SWAL SCH ×5 (09:04→20:27)
[2020-11-26] MEDS: PANTOPRAZOLE 40 MG TABLET PO SCH (09:04)
[2020-11-26] MEDS: METOPROLOL SUCCINATE XL 25 MG TABLET PO SCH (09:04)
[2020-11-26] MEDS: allopurinoL 100 MG TABLET PO SCH ×2 (09:04→20:28)
[2020-11-26] MEDS: DOCUSATE SODIUM 100 MG CAPSULE PO SCH ×2 (09:04→20:27)
[2020-11-26] MEDS ORDERED: POTASSIUM CHLORIDE 20 MEQ TABLET PO PRN (10:05)
[2020-11-26] MEDS: POTASSIUM CHLORIDE RIDER 10 MEQ/100 ML PREMIX IV PRN ×3 (10:40→13:24)
[2020-11-26] MEDS: ZINC OXIDE PASTE 113 GM TUBE TOP SCH ×2 (16:19→20:28)
[2020-11-26] MEDS: NITROFURANTOIN MACRO/MONO 100 MG CAPSULE PO SCH (16:19)
[2020-11-26] MEDS: ASPIRIN EC 81 MG TABLET PO SCH (20:27)
[2020-11-26] MEDS: ATORVASTATIN 20 MG TABLET PO SCH (20:28)
[2020-11-27] MEDS: SODIUM CHLORIDE 23.4% CONC INJ 38.5 MEQ in STERILE WATER INJ 1,000 ML IV SCH (05:34)
[2020-11-27 06:14] LABS: Basophils # 0.1 10*3/uL (0.0-0.2); Basophils % 0.4 % (0.0-0.8); Eosinophils # 0.7 10*3/uL (0.0-0.87); Eosinophils % 3.8 % (0.00-10.9); Hematocrit 40.6 VOL% (35.7-47.0); Hemoglobin 12.7 GM/DL (12.0-16.0); Immature Granulocytes % 0.7 %; Immature Granulocytes Absolute 0.13 #; Lymphocytes # 2.4 10*3/uL (1.4-4.0); Mean Corpuscular HGB Conc 31.3 GM/DL (32-36); Mean Corpuscular Volume 99.3 FL (87-102); Mean Platelet Volume 12.7 FL (9.6-12.0); Monocytes % 4.3 % (1.7-12.7); Neutrophils % 77.8 % (38.7-73.9); Red Blood Count 4.09 MC/CUMM (3.8-5.5); Red Cell Distribution Width 14.6 % (9.3-17.3); White Blood Count 18.5 T/CUMM (4-12)
[2020-11-27 06:17] LABS: Platelet Count 150 T/CUMM (130-400)
[2020-11-27 06:19] LABS: Calcium 9.5 MG/DL (8.5-10.1); Osmolality,Calculated 309.6 MOS/KG (273-304); Potassium 3.9 MMOL/L (3.5-5.1)
[2020-11-27] MEDS: NITROFURANTOIN MACRO/MONO 100 MG CAPSULE PO SCH (06:28)
[2020-11-27] MEDS: INSULIN LISPRO 100 UNIT/ML SUBCUT SCH ×2 (08:34→12:19)
[2020-11-27] MEDS: DOCUSATE SODIUM 100 MG CAPSULE PO SCH (08:35)
[2020-11-27] MEDS: allopurinoL 100 MG TABLET PO SCH (08:35)
[2020-11-27] MEDS: METOPROLOL SUCCINATE XL 25 MG TABLET PO SCH (08:35)
[2020-11-27] MEDS: ZINC OXIDE PASTE 113 GM TUBE TOP SCH (08:35)
[2020-11-27] MEDS: PANTOPRAZOLE 40 MG TABLET PO SCH (08:35)
[2020-11-27] MEDS: NYSTATIN 500,000 UNIT/5 ML UDCUP SWISH/SWAL SCH (08:35)
[2020-11-27 08:38] VITALS: BP 165/77
== END 2020-11-27 11:40 | DRG 689 ==
LOC: EDBD → EDUNIT# → N.ED 09:42 → N.EDINP 13:40 → SUATTDRO 13:40 → N.3E 17:21
PROVIDERS: ADMIT Internal Medicine; ATTEND Internal Medicine

== ENCOUNTER 2020-12-05 08:29 | Inpatient (IN) ==
[2020-12-05 08:59] LABS: Basophils % 0.1 % (0.0-0.8); Hematocrit 48.7 VOL% (35.7-47.0); Hemoglobin 15.4 GM/DL (12.0-16.0); Immature Granulocytes % 0.9 %; Immature Granulocytes Absolute 0.34 #; Lymphocytes # 2.6 10*3/uL (1.4-4.0); Lymphocytes % 7.1 % (21.3-54.2); Mean Corpuscular HGB Conc 31.6 GM/DL (32-36); Mean Corpuscular Volume 97.2 FL (87-102); Mean Platelet Volume 11.8 FL (9.6-12.0); Monocytes % 3.5 % (1.7-12.7); NRBC # 0.02 10*3/uL; Neutrophils % 88.4 % (38.7-73.9); Platelet Count 205 T/CUMM (130-400); Red Blood Count 5.01 MC/CUMM (3.8-5.5); Red Cell Distribution Width 15.7 % (9.3-17.3); White Blood Count 36.4 T/CUMM (4-12)
[2020-12-05] MEDS ORDERED: LACTATED RINGERS 1,000 ML IV ONE (09:10)
[2020-12-05 09:18] LABS: Lymphocytes 8 % (20-55); Platelet Estimate Adequate; Segmented Neutrophils 86 % (50-85); Total Cells Counted 100
[2020-12-05 09:19] LABS: Alanine Aminotransferase 181 U/L (13-56); Albumin 2.9 G/DL (3.4-5.0); Alkaline Phosphatase 241 U/L (45-117); Aspartate Amino Transferase 90 U/L (0-37); Blood Urea Nitrogen 109 MG/DL (7-18); Calcium 10.6 MG/DL (8.5-10.1); Carbon Dioxide 23 MMOL/L (21-32); Estimated Glom Filtration Rate 13 ML/MIN; Glucose 251 MG/DL (74-106); Potassium 3.8 MMOL/L (3.5-5.1); Sodium 157 MMOL/L (136-145); Total Protein 7.1 G/DL (6.4-8.2)
[2020-12-05 09:20] LABS: Lactic Acid 2.4 MMOL/L (0.4-2.0)
[2020-12-05] MEDS ORDERED: LACTATED RINGERS 500 ML IV ONE (09:28)
[2020-12-05 09:53] LABS: Bilirubin,Urine Negative (Negative); Blood, Urine Small mg/dL (Negative); Glucose,Urine (UA) Negative (Negative); Ketones,Urine Negative (Negative); Mucus,Urine Occasional /LPF (Occasional); Nitrite,Urine Negative (Negative); Protein,Urine Negative; RBC,Urine 20 /HPF (0-4); Squamous Epithelial Cell,Urine Few /HPF (0-10); Urine Appearance CLOUDY (Clear); Urine Color Yellow (Yellow); Urine Specific Gravity 1.014 (1.001-1.035); Urine Urobilinogen < 2.0 EU/DL (0.2-1.0)
[2020-12-05] MEDS ORDERED: VANCOMYCIN INJ 1,250 MG in SODIUM CHLORIDE 0.9% 250 ML IV STA (10:00)
[2020-12-05] MEDS ORDERED: VANCOMYCIN 1,000 MG VIAL ONE (10:28)
[2020-12-05] MEDS ORDERED: GLUCAGON 1 MG VIAL IM PRN (10:47)
[2020-12-05] MEDS ORDERED: DEXTROSE 50% 25 GM/50 ML VIAL IV PRN (10:47)
[2020-12-05] MEDS ORDERED: ONDANSETRON 4 MG/2 ML VIAL IV PRN (10:47)
[2020-12-05] MEDS ORDERED: PIPERACILLIN/TAZOBACTAM 3,375 MG in SODIUM CHLORIDE 0.9% 100 ML IV SCH (11:00)
[2020-12-05] MEDS: ENOXAPARIN 30 MG/0.3 ML SYRINGE SUBCUT SCH (12:12)
[2020-12-05] MEDS ORDERED: LACTULOSE 320 GM/480 ML BOTTLE RECTAL ONE (13:00)
[2020-12-05 13:48] LABS: Osmolality,Calculated 353.9 MOS/KG (273-304); Potassium 3.7 MMOL/L (3.5-5.1)
[2020-12-05] MEDS ORDERED: ENOXAPARIN 60 MG/0.6 ML SYRINGE IV ONE (14:46)
[2020-12-05] MEDS ORDERED: ASPIRIN 300 MG SUPP RECTAL ONE (14:51)
[2020-12-05] MEDS: PIPERACILLIN/TAZOBACTAM 3,375 MG in SODIUM CHLORIDE 0.9% 100 ML IV SCH (16:42)
[2020-12-05] MEDS: DEXTROSE 5% 1,000 ML IV SCH ×2 (17:38→23:00)
[2020-12-05] MEDS: INSULIN REGULAR 100 UNIT/ML SUBCUT SCH (18:22)
[2020-12-06] MEDS: INSULIN REGULAR 100 UNIT/ML SUBCUT SCH ×4 (00:12→19:06)
[2020-12-06 06:34] LABS: Basophils # 0.1 10*3/uL (0.0-0.2); Basophils % 0.2 % (0.0-0.8); Hematocrit 39.5 VOL% (35.7-47.0); Immature Granulocytes % 1.1 %; Immature Granulocytes Absolute 0.32 #; Lymphocytes # 2.6 10*3/uL (1.4-4.0); Lymphocytes % 8.6 % (21.3-54.2); Mean Corpuscular HGB Conc 31.4 GM/DL (32-36); Mean Corpuscular Volume 99.2 FL (87-102); Mean Platelet Volume 12.2 FL (9.6-12.0); Monocytes % 3.3 % (1.7-12.7); NRBC # 0.02 10*3/uL; Neutrophils % 86.8 % (38.7-73.9); Red Cell Distribution Width 15.8 % (9.3-17.3); White Blood Count 29.7 T/CUMM (4-12)
[2020-12-06 06:36] LABS: Hemoglobin 12.4 GM/DL (12.0-16.0); Platelet Count 159 T/CUMM (130-400); Red Blood Count 3.98 MC/CUMM (3.8-5.5)
[2020-12-06 06:48] LABS: Lymphocytes 9 % (20-55); Platelet Estimate Adequate; Segmented Neutrophils 88 % (50-85); Total Cells Counted 100
[2020-12-06 06:53] LABS: Albumin 2.1 G/DL (3.4-5.0); Bilirubin,Total 0.7 MG/DL (0.2-1.0); Calcium 9.5 MG/DL (8.5-10.1); Osmolality,Calculated 348.6 MOS/KG (273-304); Potassium 3.2 MMOL/L (3.5-5.1); Total Protein 5.6 G/DL (6.4-8.2)
[2020-12-06] MEDS: DEXTROSE 5% 1,000 ML IV SCH (07:26)
[2020-12-06] MEDS: ENOXAPARIN 30 MG/0.3 ML SYRINGE SUBCUT SCH (11:46)
[2020-12-06] MEDS: PIPERACILLIN/TAZOBACTAM 3,375 MG in SODIUM CHLORIDE 0.9% 100 ML IV SCH ×2 (11:46)
[2020-12-06] MEDS: MENTHOL/ZINC OXIDE OINT 71 GM JAR TOP SCH (16:45)
[2020-12-07] MEDS: INSULIN REGULAR 100 UNIT/ML SUBCUT SCH ×4 (00:46→17:30)
[2020-12-07] MEDS: MENTHOL/ZINC OXIDE OINT 71 GM JAR TOP SCH ×3 (00:46→21:00)
[2020-12-07] MEDS: PIPERACILLIN/TAZOBACTAM 3,375 MG in SODIUM CHLORIDE 0.9% 100 ML IV SCH ×2 (01:21→12:05)
[2020-12-07] MEDS: DEXTROSE 5% 1,000 ML IV SCH ×2 (05:46→14:20)
[2020-12-07 06:20] LABS: Basophils % 0.1 % (0.0-0.8); Eosinophils % 0.2 % (0.00-10.9); Hematocrit 34.9 VOL% (35.7-47.0); Immature Granulocytes % 0.8 %; Immature Granulocytes Absolute 0.19 #; Lymphocytes # 2.3 10*3/uL (1.4-4.0); Lymphocytes % 10.1 % (21.3-54.2); Mean Corpuscular HGB Conc 31.5 GM/DL (32-36); Mean Corpuscular Volume 97.8 FL (87-102); Mean Platelet Volume 11.9 FL (9.6-12.0); Monocytes % 2.8 % (1.7-12.7); Platelet Count 150 T/CUMM (130-400); Red Blood Count 3.57 MC/CUMM (3.8-5.5); Red Cell Distribution Width 15.5 % (9.3-17.3); White Blood Count 22.4 T/CUMM (4-12)
[2020-12-07 06:45] LABS: Calcium 8.8 MG/DL (8.5-10.1); Potassium 2.9 MMOL/L (3.5-5.1)
[2020-12-07 06:47] LABS: Hypochromasia Slight; Lymphocytes 8 % (20-55); Microcytosis Slight; Platelet Estimate Adequate; Segmented Neutrophils 87 % (50-85); Total Cells Counted 100
[2020-12-07] MEDS: ENOXAPARIN 30 MG/0.3 ML SYRINGE SUBCUT SCH (12:03)
[2020-12-07] MEDS: POTASSIUM CHLORIDE RIDER 10 MEQ/100 ML PREMIX IV PRN ×4 (14:20→17:26)
[2020-12-08] MEDS: POTASSIUM CHLORIDE RIDER 10 MEQ/100 ML PREMIX IV PRN (01:04)
[2020-12-08] MEDS: INSULIN REGULAR 100 UNIT/ML SUBCUT SCH ×3 (01:05→12:21)
[2020-12-08] MEDS: DEXTROSE 5% 1,000 ML IV SCH ×3 (01:05→11:34)
[2020-12-08] MEDS: PIPERACILLIN/TAZOBACTAM 3,375 MG in SODIUM CHLORIDE 0.9% 100 ML IV SCH ×2 (02:26→13:12)
[2020-12-08] MEDS: MENTHOL/ZINC OXIDE OINT 71 GM JAR TOP SCH (08:32)
[2020-12-08] MEDS: ENOXAPARIN 30 MG/0.3 ML SYRINGE SUBCUT SCH (10:13)
[2020-12-08 12:31] VITALS: BP 162/59
== END 2020-12-08 14:25 | disposition hospice, inpatient (51) | DRG 871 ==
LOC: N.ED 08:29 → N.EDINP 10:47 → SUATTDRO 10:47 → N.TELES 11:39
PROVIDERS: ADMIT Internal Medicine; ATTEND Internal Medicine